=== PATIENT | male | born 1960 | race Two or more races ===

== ENCOUNTER 2017-09-09 09:33 | Emergency (ER) | payer OTHER ==
[~2017-09-09] VITALS: Ht 160 cm; Wt 72.8 kg
[2017-09-09] MEDS ORDERED: ONDANSETRON 2MG/ML, 2ML IVPush ONE (10:00)
[2017-09-09] MEDS ORDERED: SODIUM CHLORIDE 0.9% 1,000ML IVBOLUS ONE (10:00)
[2017-09-09] MEDS ORDERED: ONDANSETRON 2MG/ML, 2ML ONE ×2 (10:08→13:24)
[2017-09-09] MEDS ORDERED: MORPHINE SULFATE 4 MG/ML, 1ML ONE ×2 (10:08→11:20)
[2017-09-09] MEDS: MORPHINE SULFATE 4 MG/ML, 1ML IVPush PRN ×2 (10:10→11:26)
[2017-09-09 10:15] LABS: BASOPHILS # (AUTO) 0.06 x10^3/uL (0-0.1); BASOPHILS % (AUTO) 1 % (0-1); EOSINOPHILS # (AUTO) 0.06 x10^3/uL (0-0.4); EOSINOPHILS % (AUTO) 1 % (1-7); LYMPHOCYTES # (AUTO) 1.28 x10^3/uL (1-3.4); LYMPHOCYTES % (AUTO) 13 % (22-44); MD NO; MEAN CORPUSCULAR HEMOGLOBIN 30.8 pg (27.5-34.5); MEAN CORPUSCULAR VOLUME 90.4 fL (81-97); MEAN PLATELET VOLUME 7.5 fL (7.4-10.4); MONOCYTES # (AUTO) 0.58 x10^3/uL (0.2-0.8); MONOCYTES % (AUTO) 6 % (2-9); NEUTROPHILS # (AUTO) 7.61 x10^3/uL (1.8-6.8); NEUTROPHILS % (AUTO) 79 % (42-75); PLATELET COUNT 242 x10^3/uL (130-400); RED BLOOD COUNT 5.44 x10^6/uL (4.38-5.82); RED CELL DISTRIBUTION WIDTH 13.9 % (9.4-14.8)
[2017-09-09 10:21] LABS: MICROSCOPIC AUTO
[2017-09-09 10:24] LABS: CULTURE INDICATED? NO
[2017-09-09 10:27] LABS: ALANINE AMINOTRANSFERASE 34 U/L (12-78); ANION GAP 6 mmol/L (5-15); CALCIUM 8.3 mg/dL (8.5-10.1); CHLORIDE 106 mmol/L (98-107)
[2017-09-09 10:29] LABS: ALKALINE PHOSPHATASE 119 U/L (45-117); CREATININE 0.67 mg/dL (0.7-1.3); TOTAL PROTEIN 8.1 g/dL (6.4-8.2)
[2017-09-09] MEDS ORDERED: OMNIPAQUE 350 MG/ML, 100ML BOTTLE ONE (11:21)
[2017-09-09] MEDS ORDERED: HYDROmorphone 1 MG/ML, 1ML IVPush PRN (12:00)
[2017-09-09] MEDS ORDERED: HYDROmorphone 2 MG/ML, 1ML ONE (12:19)
[2017-09-09 13:33] VITALS: BP 154/89
== END 2017-09-09 13:38 | disposition home or self-care (01) ==
LOC: ED 10:26
DX: R10.30 Lower abdominal pain, unspecified (principal)
CPT/HCPCS: 36415; 74177; 80053; 81001; 85025; 96361; 96374; 96375; 96376; 99285; J1170; J2405; J7030; Q9967

== ENCOUNTER 2017-09-18 11:40 | Inpatient (IN) | payer OTHER ==
[~2017-09-18] VITALS: Ht 160 cm; Wt 69.0 kg
[2017-09-18] MEDS ORDERED: ACET-1600 PO (12:33)
[2017-09-18] MEDS ORDERED: NAPR-868 PO (12:33)
[2017-09-18 12:51] VITALS: BP 159/98
[2017-09-18] MEDS ORDERED: LACTATED RINGERS 1,000 ML IV SCH (12:51)
[2017-09-18] MEDS ORDERED: PLEASE ENTER HEIGHT AND WEIGHT MC SCH (13:30)
[2017-09-18] MEDS ORDERED: FENTANYL PF 100 MCG/2ML ONE (14:34)
[2017-09-18] MEDS ORDERED: MIDAZOLAM 1 MG/ML, 2ML ONE (14:59)
[2017-09-18] MEDS ORDERED: FENTANYL PF 100 MCG/2ML IV ONE (15:00)
[2017-09-18] MEDS ORDERED: FENTANYL PF 250 MCG/5ML ONE ×3 (15:07→16:29)
[2017-09-18] MEDS ORDERED: ONDANSETRON 2MG/ML, 2ML ONE (15:58)
[2017-09-18] MEDS ORDERED: DEXAMETHASONE 4 MG/ML, 5ML ONE (15:58)
[2017-09-18] MEDS ORDERED: hydrALAzine 20 MG/ML, 1ML ONE (15:58)
[2017-09-18] MEDS ORDERED: METOPROLOL 1 MG/ML, 5ML ONE (15:58)
[2017-09-18] MEDS ORDERED: ROCURONIUM 10 MG/ML,10ML ONE (15:58)
[2017-09-18] MEDS ORDERED: CEFOTETAN 2 GM ONE (15:58)
[2017-09-18] MEDS ORDERED: PROPOFOL 10 MG/ML, 20ML ONE (15:58)
[2017-09-18] MEDS ORDERED: ONDANSETRON 2MG/ML, 2ML IVPush PRN (16:00)
[2017-09-18] MEDS ORDERED: LABETALOL 5MG/ML, 20ML IV PRN (16:00)
[2017-09-18] MEDS ORDERED: ACETAMINOPHEN 325 MG TABLET PO PRN (16:00)
[2017-09-18] MEDS ORDERED: FENTANYL PF 100 MCG/2ML IV PRN (16:00)
[2017-09-18] MEDS ORDERED: MEPERIDINE/PF 50 MG/ML ONE (17:34)
[2017-09-18] MEDS: MEPERIDINE/PF 25MG/0.5ML IVPush PRN ×4 (17:40→19:10)
[2017-09-18] MEDS ORDERED: HYDROmorphone 2 MG/ML, 1ML ONE (18:18)
[2017-09-18] MEDS: HYDROmorphone 1 MG/ML, 1ML IV PRN ×3 (18:20→18:50)
[2017-09-18] MEDS ORDERED: DIPHENHYDRAMINE 25 MG CAPSULE PO PRN (20:30)
[2017-09-18] MEDS ORDERED: DIPHENHYDRAMINE 50 MG/ML, 1ML IVPush PRN (20:30)
[2017-09-18] MEDS ORDERED: LORazepam 1MG TABLET PO PRN (20:30)
[2017-09-18] MEDS ORDERED: CALCIUM CARBONATE 500 MG TAB.CHEW PO PRN (20:30)
[2017-09-18] MEDS ORDERED: ONDANSETRON 2MG/ML, 2ML IV PRN (20:30)
[2017-09-18] MEDS ORDERED: DEXAMETHASONE 4 MG/ML, 1ML IVPush PRN (20:30)
[2017-09-18] MEDS: ACETAMINOPHEN 325 MG TABLET PO SCH (21:55)
[2017-09-18] MEDS: KETOROLAC 30 MG/1 ML IVPush SCH (21:55)
[2017-09-18] MEDS ORDERED: LORazepam 2 MG/ML, 1ML IVPush PRN (22:00)
[2017-09-19 00:52] VITALS: BP 138/85
[2017-09-19 03:38] VITALS: BP_SYST 118; BP_SYST 125; BP_DIAS 72
[2017-09-19] MEDS: LACTATED RINGERS 1,000 ML IV SCH ×3 (03:51→22:49)
[2017-09-19] MEDS: KETOROLAC 30 MG/1 ML IVPush SCH ×3 (04:03→17:47)
[2017-09-19] MEDS: ACETAMINOPHEN 325 MG TABLET PO SCH ×3 (04:03→17:47)
[2017-09-19 05:37] LABS: BASOPHILS # (AUTO) 0.01 x10^3/uL (0-0.1); BASOPHILS % (AUTO) 0 % (0-1); EOSINOPHILS # (AUTO) 0.01 x10^3/uL (0-0.4); EOSINOPHILS % (AUTO) 0 % (1-7); LYMPHOCYTES % (AUTO) 7 % (22-44); MD NO; MEAN CORPUSCULAR HEMOGLOBIN 30.6 pg (27.5-34.5); MEAN CORPUSCULAR VOLUME 90.1 fL (81-97); MEAN PLATELET VOLUME 7.8 fL (7.4-10.4); MONOCYTES # (AUTO) 0.61 x10^3/uL (0.2-0.8); MONOCYTES % (AUTO) 6 % (2-9); NEUTROPHILS # (AUTO) 9.21 x10^3/uL (1.8-6.8); NEUTROPHILS % (AUTO) 87 % (42-75); PLATELET COUNT 261 x10^3/uL (130-400); RED BLOOD COUNT 4.69 x10^6/uL (4.38-5.82); RED CELL DISTRIBUTION WIDTH 13.6 % (9.4-14.8)
[2017-09-19 05:52] LABS: ALBUMIN 2.8 g/dL (3.4-5.0); ANION GAP 9 mmol/L (5-15); CALCIUM 7.7 mg/dL (8.5-10.1); CHLORIDE 101 mmol/L (98-107)
[2017-09-19 05:54] LABS: CREATININE 0.73 mg/dL (0.7-1.3)
[2017-09-19] MEDS: MORPHINE SULFATE 4 MG/ML, 1ML IVPush PRN ×2 (06:18→14:19)
[2017-09-19 07:07] VITALS: BP 93/53
[2017-09-19] MEDS: TAMSULOSIN 0.4 MG CAP.ER.24H PO SCH (10:54)
[2017-09-19] MEDS: ENOXAPARIN 40 MG/0.4 ML SQ SCH (10:55)
[2017-09-19] MEDS ORDERED: MAGNESIUM SULFATE PMX 2GM/50ML 50 ML IVPB ONE (11:30)
[2017-09-19 12:40] VITALS: BP 94/58
[2017-09-19 19:33] VITALS: BP 92/53
[2017-09-20] MEDS: KETOROLAC 30 MG/1 ML IVPush SCH ×5 (00:09→23:54)
[2017-09-20] MEDS: ACETAMINOPHEN 325 MG TABLET PO SCH ×5 (00:09→23:54)
[2017-09-20 02:24] VITALS: BP 90/50
[2017-09-20 05:01] LABS: MEAN CORPUSCULAR HEMOGLOBIN 30.7 pg (27.5-34.5); MEAN CORPUSCULAR HGB CONC 33.7 g/dL (33.2-36.2); MEAN CORPUSCULAR VOLUME 91.3 fL (81-97); MEAN PLATELET VOLUME 7.3 fL (7.4-10.4); PLATELET COUNT 214 x10^3/uL (130-400); RED BLOOD COUNT 4.05 x10^6/uL (4.38-5.82); RED CELL DISTRIBUTION WIDTH 13.6 % (9.4-14.8)
[2017-09-20 05:08] LABS: ANION GAP 7 mmol/L (5-15); CALCIUM 7.6 mg/dL (8.5-10.1); CHLORIDE 101 mmol/L (98-107)
[2017-09-20 05:09] LABS: CREATININE 0.85 mg/dL (0.7-1.3)
[2017-09-20 05:59] LABS: MD YES
[2017-09-20 06:00] LABS: BAND#(MANUAL) 0.53 x10^3/uL; BANDS%(MANUAL) 3 % (0-7); EOS#(MANUAL) 0.18 x10^3/uL (0.0-0.4); EOS% (MANUAL) 1 % (1-7); LYMPH#(MANUAL) 0.88 x10^3/uL (1-3.4); LYMPHS% (MANUAL) 5 % (22-44); MONOS#(MANUAL) 0.53 x10^3/uL (0.3-2.7); MONOS% (MANUAL) 3 % (2-9); SEG#(MANUAL) 15.49 x10^3/uL (1.8-6.8); SEGS% (MANUAL) 88 % (42-75)
[2017-09-20 06:02] LABS: <PLATELET ESTIMATE> ADEQUATE; <PLT MORPHOLOGY> NORMAL PLT MORPH; <RBC MORPHOLOGY> NORMAL
[2017-09-20] MEDS: LACTATED RINGERS 1,000 ML IV SCH ×2 (08:02→17:52)
[2017-09-20] MEDS: TAMSULOSIN 0.4 MG CAP.ER.24H PO SCH (08:03)
[2017-09-20 08:04] VITALS: BP 103/64
[2017-09-20] MEDS: ENOXAPARIN 40 MG/0.4 ML SQ SCH (11:44)
[2017-09-20 13:06] VITALS: BP 107/67
[2017-09-20 15:38] LABS: MICROSCOPIC AUTO
[2017-09-20 19:54] VITALS: BP 98/58
[2017-09-21] MEDS: LACTATED RINGERS 1,000 ML IV SCH (01:54)
[2017-09-21 03:09] VITALS: BP 110/70
[2017-09-21 05:10] LABS: BASOPHILS # (AUTO) 0.02 x10^3/uL (0-0.1); BASOPHILS % (AUTO) 0 % (0-1); EOSINOPHILS # (AUTO) 0.44 x10^3/uL (0-0.4); EOSINOPHILS % (AUTO) 3 % (1-7); LYMPHOCYTES # (AUTO) 1.26 x10^3/uL (1-3.4); LYMPHOCYTES % (AUTO) 8 % (22-44); MD NO; MEAN CORPUSCULAR HEMOGLOBIN 30.8 pg (27.5-34.5); MEAN CORPUSCULAR HGB CONC 34.2 g/dL (33.2-36.2); MEAN CORPUSCULAR VOLUME 90.2 fL (81-97); MEAN PLATELET VOLUME 7.4 fL (7.4-10.4); MONOCYTES # (AUTO) 0.71 x10^3/uL (0.2-0.8); MONOCYTES % (AUTO) 5 % (2-9); NEUTROPHILS # (AUTO) 13.13 x10^3/uL (1.8-6.8); NEUTROPHILS % (AUTO) 84 % (42-75); PLATELET COUNT 210 x10^3/uL (130-400); RED BLOOD COUNT 3.64 x10^6/uL (4.38-5.82); RED CELL DISTRIBUTION WIDTH 13.5 % (9.4-14.8)
[2017-09-21 05:18] LABS: CHLORIDE 104 mmol/L (98-107)
[2017-09-21 05:25] LABS: ANION GAP 7 mmol/L (5-15); CALCIUM 7.9 mg/dL (8.5-10.1); CREATININE 0.68 mg/dL (0.7-1.3)
[2017-09-21] MEDS: ACETAMINOPHEN 325 MG TABLET PO SCH ×4 (05:53→23:25)
[2017-09-21] MEDS: KETOROLAC 30 MG/1 ML IVPush SCH ×3 (05:53→17:53)
[2017-09-21 06:56] VITALS: BP 115/72
[2017-09-21] MEDS: TAMSULOSIN 0.4 MG CAP.ER.24H PO SCH (07:51)
[2017-09-21] MEDS: ENOXAPARIN 40 MG/0.4 ML SQ SCH (11:57)
[2017-09-21] MEDS: OXYcodone/APAP 5/325MG TABLET PO PRN ×3 (11:58→22:05)
[2017-09-21 14:00] VITALS: BP 112/73
[2017-09-21 19:46] VITALS: BP 115/71
[2017-09-21] MEDS: SODIUM CHLORIDE FLUSH 10ML SYR IVF SCH (22:05)
[2017-09-22 03:15] VITALS: BP 117/75
[2017-09-22 04:54] LABS: BASOPHILS # (AUTO) 0.02 x10^3/uL (0-0.1); BASOPHILS % (AUTO) 0 % (0-1); EOSINOPHILS % (AUTO) 5 % (1-7); LYMPHOCYTES # (AUTO) 1.25 x10^3/uL (1-3.4); LYMPHOCYTES % (AUTO) 11 % (22-44); MD NO; MEAN CORPUSCULAR HEMOGLOBIN 30.9 pg (27.5-34.5); MEAN CORPUSCULAR HGB CONC 33.8 g/dL (33.2-36.2); MEAN CORPUSCULAR VOLUME 91.3 fL (81-97); MEAN PLATELET VOLUME 7.1 fL (7.4-10.4); MONOCYTES # (AUTO) 0.81 x10^3/uL (0.2-0.8); MONOCYTES % (AUTO) 7 % (2-9); NEUTROPHILS # (AUTO) 8.51 x10^3/uL (1.8-6.8); NEUTROPHILS % (AUTO) 76 % (42-75); PLATELET COUNT 260 x10^3/uL (130-400); RED BLOOD COUNT 3.64 x10^6/uL (4.38-5.82); RED CELL DISTRIBUTION WIDTH 13.8 % (9.4-14.8)
[2017-09-22 05:06] LABS: CHLORIDE 103 mmol/L (98-107)
[2017-09-22 05:11] LABS: ANION GAP 6 mmol/L (5-15); CALCIUM 7.5 mg/dL (8.5-10.1); CREATININE 0.64 mg/dL (0.7-1.3)
[2017-09-22] MEDS: ACETAMINOPHEN 325 MG TABLET PO SCH ×3 (05:23→17:58)
[2017-09-22] MEDS: OXYcodone/APAP 5/325MG TABLET PO PRN ×3 (06:06→16:53)
[2017-09-22 07:16] VITALS: BP 117/67
[2017-09-22] MEDS: TAMSULOSIN 0.4 MG CAP.ER.24H PO SCH (08:33)
[2017-09-22] MEDS: SODIUM CHLORIDE FLUSH 10ML SYR IVF SCH ×2 (08:33→20:41)
[2017-09-22] MEDS ORDERED: POTASSIUM CHLORIDE 20 MEQ TAB.ER.PRT ONE (11:15)
[2017-09-22] MEDS: POTASSIUM CHLORIDE 20 MEQ TAB.ER.PRT PO SCH ×2 (11:19→20:41)
[2017-09-22] MEDS: ENOXAPARIN 40 MG/0.4 ML SQ SCH (11:19)
[2017-09-22 12:52] VITALS: BP 121/81
[2017-09-22 19:20] VITALS: BP 130/74
[2017-09-23 03:04] VITALS: BP 132/78
[2017-09-23] MEDS: OXYcodone/APAP 5/325MG TABLET PO PRN ×2 (04:45→15:52)
[2017-09-23 04:57] LABS: BASOPHILS # (AUTO) 0.02 x10^3/uL (0-0.1); BASOPHILS % (AUTO) 0 % (0-1); EOSINOPHILS # (AUTO) 0.46 x10^3/uL (0-0.4); EOSINOPHILS % (AUTO) 6 % (1-7); LYMPHOCYTES # (AUTO) 1.01 x10^3/uL (1-3.4); LYMPHOCYTES % (AUTO) 13 % (22-44); MD NO; MEAN CORPUSCULAR HEMOGLOBIN 30.6 pg (27.5-34.5); MEAN CORPUSCULAR VOLUME 90.1 fL (81-97); MEAN PLATELET VOLUME 7.1 fL (7.4-10.4); MONOCYTES # (AUTO) 0.59 x10^3/uL (0.2-0.8); MONOCYTES % (AUTO) 8 % (2-9); NEUTROPHILS # (AUTO) 5.55 x10^3/uL (1.8-6.8); NEUTROPHILS % (AUTO) 73 % (42-75); PLATELET COUNT 317 x10^3/uL (130-400); RED BLOOD COUNT 3.94 x10^6/uL (4.38-5.82); RED CELL DISTRIBUTION WIDTH 13.8 % (9.4-14.8)
[2017-09-23 05:00] LABS: ANION GAP 7 mmol/L (5-15); CHLORIDE 103 mmol/L (98-107); CREATININE 0.64 mg/dL (0.7-1.3)
[2017-09-23] MEDS: ACETAMINOPHEN 325 MG TABLET PO SCH ×4 (06:00→17:22)
[2017-09-23 08:01] VITALS: BP 113/71
[2017-09-23] MEDS: TAMSULOSIN 0.4 MG CAP.ER.24H PO SCH (08:54)
[2017-09-23] MEDS: SODIUM CHLORIDE FLUSH 10ML SYR IVF SCH (08:54)
[2017-09-23] MEDS: POTASSIUM CHLORIDE 20 MEQ TAB.ER.PRT PO SCH (08:54)
[2017-09-23] MEDS: ENOXAPARIN 40 MG/0.4 ML SQ SCH (11:27)
[2017-09-23 13:08] VITALS: BP 105/63
[2017-09-23] MEDS ORDERED: OXYC-302 PO (18:50)
[2017-09-23] MEDS ORDERED: POTA10TA11 PO (18:52)
== END 2017-09-23 19:18 | disposition home or self-care (01) | DRG 331 ==
LOC: ORIP 11:40 → EDSTATUS 15:00 → 4NOR 19:45
PROVIDERS: ADMIT Colon & Rectal Surgery; ATTEND Colon & Rectal Surgery
PROC: 0DBE0ZZ Excision of Large Intestine, Open Approach (ICD-10-PCS; principal; 2017-09-18 15:00)
DX: K56.699 Other intestinal obstruction unspecified as to partial versus complete obstruction (principal)
CPT/HCPCS: 36415; 80048; 81001; 82040; 83735; 85025; 86850; 86900; 88305; 88307; J1100; J1170; J1650; J1885; J2175; J2250; J2270; J2405; J2704; J3010; C1765; J0360; J3475; J7120; S0074

== ENCOUNTER 2017-09-26 20:39 | Inpatient (IN) | payer OTHER ==
[~2017-09-26] VITALS: Ht 160 cm; Wt 61.1 kg
[~2017-09-26 20:39] MED LIST: ACET-1600 PO; NAPR-868 PO; OXYC-302 PO; POTA10TA11 PO
[2017-09-26] MEDS ORDERED: OMNIPAQUE 350 MG/ML, 100ML BOTTLE ONE (21:00)
[2017-09-26] MEDS ORDERED: SODIUM CHLORIDE 0.9% 1,000ML IVBOLUS ONE (21:00)
[2017-09-26] MEDS ORDERED: SODIUM CHLORIDE FLUSH 10ML SYR IVF ONE (21:00)
[2017-09-26 21:24] LABS: BASOPHILS # (AUTO) 0.04 x10^3/uL (0-0.1); BASOPHILS % (AUTO) 0 % (0-1); EOSINOPHILS # (AUTO) 0.34 x10^3/uL (0-0.4); EOSINOPHILS % (AUTO) 3 % (1-7); LYMPHOCYTES # (AUTO) 1.14 x10^3/uL (1-3.4); LYMPHOCYTES % (AUTO) 8 % (22-44); MD NO; MEAN CORPUSCULAR HEMOGLOBIN 30.5 pg (27.5-34.5); MEAN CORPUSCULAR HGB CONC 33.8 g/dL (33.2-36.2); MEAN CORPUSCULAR VOLUME 90.1 fL (81-97); MEAN PLATELET VOLUME 6.3 fL (7.4-10.4); MONOCYTES # (AUTO) 0.59 x10^3/uL (0.2-0.8); MONOCYTES % (AUTO) 4 % (2-9); NEUTROPHILS # (AUTO) 11.57 x10^3/uL (1.8-6.8); NEUTROPHILS % (AUTO) 85 % (42-75); PLATELET COUNT 563 x10^3/uL (130-400); RED BLOOD COUNT 4.35 x10^6/uL (4.38-5.82); RED CELL DISTRIBUTION WIDTH 13.3 % (9.4-14.8)
[2017-09-26 21:32] LABS: ALANINE AMINOTRANSFERASE 27 U/L (12-78); ALBUMIN 2.6 g/dL (3.4-5.0); ANION GAP 8 mmol/L (5-15); CALCIUM 8.2 mg/dL (8.5-10.1); CHLORIDE 101 mmol/L (98-107); CREATININE 0.69 mg/dL (0.7-1.3)
[2017-09-26 21:34] LABS: ALKALINE PHOSPHATASE 101 U/L (45-117); BILIRUBIN,TOTAL 0.5 mg/dL (0.2-1.0); TOTAL PROTEIN 7.1 g/dL (6.4-8.2)
[2017-09-26] MEDS ORDERED: MEROPENEM 1 GM in SODIUM CHLORIDE 0.9% 100 ML IV ONE (23:00)
[2017-09-26 23:49] LABS: MICROSCOPIC NOT IND
[2017-09-26 23:54] LABS: CULTURE INDICATED? NO
[2017-09-27] MEDS ORDERED: PIPERACILLIN/TAZO/PMX 3.375GM 50 ML IV SCH
[2017-09-27] MEDS ORDERED: hydrALAzine 20 MG/ML, 1ML IVPush PRN
[2017-09-27] MEDS ORDERED: ONDANSETRON ODT 4 MG PO PRN
[2017-09-27] MEDS ORDERED: LACTATED RINGERS 1,000 ML IV SCH
[2017-09-27] MEDS ORDERED: METRONIDAZOLE PMX 500MG/100ML 100 ML ONE (00:16)
[2017-09-27] MEDS ORDERED: PIPERACILLIN/TAZO/PMX 3.375GM 50 ML ONE (00:16)
[2017-09-27] MEDS ORDERED: MORPHINE SULFATE 4 MG/ML, 1ML ONE (00:50)
[2017-09-27] MEDS: METRONIDAZOLE PMX 500MG/100ML 100 ML IV SCH ×3 (00:55→16:34)
[2017-09-27] MEDS: ENOXAPARIN 30 MG/0.3 ML SQ SCH ×2 (00:55→13:29)
[2017-09-27] MEDS: morphine SULFATE 10 MG/ML, 1ML IVPush PRN ×6 (00:55→21:36)
[2017-09-27 02:00] VITALS: BP 101/65
[2017-09-27 02:03] VITALS: BP 101/65
[2017-09-27 05:25] LABS: CHLORIDE 103 mmol/L (98-107)
[2017-09-27 05:30] LABS: ANION GAP 7 mmol/L (5-15); CALCIUM 7.8 mg/dL (8.5-10.1); CREATININE 0.64 mg/dL (0.7-1.3)
[2017-09-27 05:44] LABS: BASOPHILS # (AUTO) 0.03 x10^3/uL (0-0.1); BASOPHILS % (AUTO) 0 % (0-1); EOSINOPHILS # (AUTO) 0.12 x10^3/uL (0-0.4); EOSINOPHILS % (AUTO) 1 % (1-7); LYMPHOCYTES % (AUTO) 6 % (22-44); MD NO; MEAN CORPUSCULAR HEMOGLOBIN 30.7 pg (27.5-34.5); MEAN CORPUSCULAR VOLUME 90.3 fL (81-97); MEAN PLATELET VOLUME 6.7 fL (7.4-10.4); MONOCYTES # (AUTO) 0.67 x10^3/uL (0.2-0.8); MONOCYTES % (AUTO) 5 % (2-9); NEUTROPHILS # (AUTO) 12.34 x10^3/uL (1.8-6.8); NEUTROPHILS % (AUTO) 88 % (42-75); PLATELET COUNT 476 x10^3/uL (130-400); RED BLOOD COUNT 3.67 x10^6/uL (4.38-5.82); RED CELL DISTRIBUTION WIDTH 13.3 % (9.4-14.8)
[2017-09-27 07:21] VITALS: BP 102/65
[2017-09-27] MEDS ORDERED: ACETAMINOPHEN 325 MG TABLET ONE (07:31)
[2017-09-27] MEDS ORDERED: ACETAMINOPHEN 325 MG TABLET PO PRN ×2 (08:00→09:30)
[2017-09-27] MEDS ORDERED: MIDAZOLAM 1 MG/ML, 2ML ONE (08:15)
[2017-09-27] MEDS ORDERED: FENTANYL PF 250 MCG/5ML ONE (08:15)
[2017-09-27] MEDS ORDERED: KETOROLAC 30 MG/1 ML ONE (08:38)
[2017-09-27] MEDS ORDERED: ROCURONIUM 10 MG/ML,10ML ONE (08:38)
[2017-09-27] MEDS ORDERED: DEXAMETHASONE 4 MG/ML, 1ML ONE (08:38)
[2017-09-27] MEDS ORDERED: ONDANSETRON 2MG/ML, 2ML ONE (08:38)
[2017-09-27] MEDS ORDERED: PIPERACILLIN/TAZO 3.375 GM VIAL ONE (08:38)
[2017-09-27] MEDS ORDERED: PROPOFOL 10 MG/ML, 20ML ONE (08:38)
[2017-09-27] MEDS ORDERED: NEOSTIGMINE 1 MG/ML, 10ML ONE (08:38)
[2017-09-27] MEDS ORDERED: SUCCINYLCHOLINE 20 MG/ML, 10ML ONE (08:38)
[2017-09-27] MEDS ORDERED: GLYCOPYRROLATE 0.2MG/1ML, 5ML ONE (08:38)
[2017-09-27] MEDS ORDERED: LORazepam 2 MG/ML, 1ML IVPush PRN (09:30)
[2017-09-27] MEDS ORDERED: hydrALAzine 20 MG/ML, 1ML IV PRN (09:30)
[2017-09-27] MEDS ORDERED: HYDROmorphone 1 MG/ML, 1ML IV PRN (09:30)
[2017-09-27] MEDS ORDERED: LABETALOL 5MG/ML, 20ML IV PRN (09:30)
[2017-09-27] MEDS ORDERED: ALBUTEROL SULFATE 2.5 MG/3 ML NPPB PRN (09:30)
[2017-09-27] MEDS ORDERED: MEPERIDINE/PF 25MG/0.5ML IVPush PRN (09:30)
[2017-09-27] MEDS ORDERED: PROMETHAZINE 12.5 MG SUPP PR PRN (09:30)
[2017-09-27] MEDS ORDERED: OXYcodone 5 MG/5 ML ORAL.SOL UDC PO PRN (09:30)
[2017-09-27] MEDS ORDERED: HYDROmorphone 2 MG/ML, 1ML ONE (10:20)
[2017-09-27] MEDS ORDERED: FENTANYL PF 100 MCG/2ML ONE (11:25)
[2017-09-27] MEDS: FENTANYL PF 100 MCG/2ML IV PRN ×2 (11:53→12:02)
[2017-09-27 12:53] VITALS: BP 120/78
[2017-09-27] MEDS ORDERED: ONDANSETRON 2MG/ML, 2ML IVPush PRN (13:00)
[2017-09-27] MEDS ORDERED: morphine SULFATE 10 MG/ML, 1ML ONE (14:49)
[2017-09-27] MEDS: LACTATED RINGERS 1,000 ML IV SCH (14:57)
[2017-09-27] MEDS: PIPERACILLIN/TAZO/PMX 3.375GM 50 ML IV SCH ×2 (15:01→21:28)
[2017-09-27 18:35] VITALS: BP 107/71
[2017-09-27 23:50] VITALS: BP 103/70
[2017-09-28] MEDS: METRONIDAZOLE PMX 500MG/100ML 100 ML IV SCH ×2 (00:37→08:06)
[2017-09-28] MEDS: ENOXAPARIN 30 MG/0.3 ML SQ SCH (00:37)
[2017-09-28] MEDS: LACTATED RINGERS 1,000 ML IV SCH ×2 (00:43→08:06)
[2017-09-28] MEDS: morphine SULFATE 10 MG/ML, 1ML IVPush PRN ×2 (01:52→08:22)
[2017-09-28] MEDS: PIPERACILLIN/TAZO/PMX 3.375GM 50 ML IV SCH ×4 (03:37→20:59)
[2017-09-28 04:00] VITALS: BP 102/71
[2017-09-28 06:45] VITALS: BP 112/74
[2017-09-28] MEDS ORDERED: TPN PER PHARMACY MC PRN (08:00)
[2017-09-28] MEDS: TAMSULOSIN 0.4 MG CAP.ER.24H PO SCH (09:21)
[2017-09-28 11:17] LABS: ALBUMIN 1.7 g/dL (3.4-5.0); ANION GAP 6 mmol/L (5-15); CALCIUM 7.9 mg/dL (8.5-10.1); CHLORIDE 106 mmol/L (98-107)
[2017-09-28 11:23] LABS: ALANINE AMINOTRANSFERASE 15 U/L (12-78); ALKALINE PHOSPHATASE 62 U/L (45-117); BILIRUBIN,TOTAL 0.6 mg/dL (0.2-1.0); CREATININE 0.79 mg/dL (0.7-1.3); PREALBUMIN 6.9 mg/dL (20.0-40.0); TOTAL PROTEIN 5.5 g/dL (6.4-8.2); TRIGLYCERIDES 61 mg/dL (50-200)
[2017-09-28 12:29] LABS: MEAN CORPUSCULAR HEMOGLOBIN 30.1 pg (27.5-34.5); MEAN CORPUSCULAR HGB CONC 33.6 g/dL (33.2-36.2); MEAN CORPUSCULAR VOLUME 89.6 fL (81-97); MEAN PLATELET VOLUME 6.6 fL (7.4-10.4); PLATELET COUNT 564 x10^3/uL (130-400); RED BLOOD COUNT 3.95 x10^6/uL (4.38-5.82); RED CELL DISTRIBUTION WIDTH 13.7 % (9.4-14.8)
[2017-09-28 12:43] LABS: BASOPHILS # (AUTO) 0.03 x10^3/uL (0-0.1); BASOPHILS % (AUTO) 0 % (0-1); EOSINOPHILS % (AUTO) 0 % (1-7); LYMPHOCYTES # (AUTO) 0.63 x10^3/uL (1-3.4); LYMPHOCYTES % (AUTO) 3 % (22-44); MD SCAN; MONOCYTES # (AUTO) 0.72 x10^3/uL (0.2-0.8); MONOCYTES % (AUTO) 4 % (2-9); NEUTROPHILS # (AUTO) 16.82 x10^3/uL (1.8-6.8); NEUTROPHILS % (AUTO) 92 % (42-75)
[2017-09-28 12:53] VITALS: BP 112/69
[2017-09-28] MEDS ORDERED: FAT EMULSIONS IV SCH (17:00)
[2017-09-28] MEDS ORDERED: AMINO ACID 10% IV SCH (17:00)
[2017-09-28] MEDS ORDERED: DEXTROSE 70% IV SCH (17:00)
[2017-09-28] MEDS ORDERED: DEXTROSE 50%, 50ML SYRINGE IVPush PRN (17:00)
[2017-09-28] MEDS ORDERED: DEXTROSE 10% 500 ML IV PRN (17:00)
[2017-09-28] MEDS ORDERED: [UNRECOGNIZED DRUG - OTHER] IV SCH (17:00)
[2017-09-28] MEDS: FILTER, DISP 1.2 MICRON FOR TPN/PVN IV PRN (18:17)
[2017-09-28 18:46] VITALS: BP 99/65
[2017-09-28] MEDS: SODIUM CHLORIDE 0.45% 1,000 ML IV SCH (19:16)
[2017-09-28] MEDS: ENOXAPARIN 40 MG/0.4 ML SQ SCH (20:59)
[2017-09-28] MEDS: INSULIN REGULAR MEDIUM DOSE Q6H X 48HRS SQ-INSULIN SCH (21:31)
[2017-09-29 00:37] VITALS: BP 94/54
[2017-09-29] MEDS: INSULIN REGULAR MEDIUM DOSE Q6H X 48HRS SQ-INSULIN SCH ×4 (03:00→20:36)
[2017-09-29] MEDS: PIPERACILLIN/TAZO/PMX 3.375GM 50 ML IV SCH ×4 (03:13→20:35)
[2017-09-29 04:02] LABS: MEAN CORPUSCULAR HEMOGLOBIN 30.1 pg (27.5-34.5); MEAN CORPUSCULAR HGB CONC 33.4 g/dL (33.2-36.2); MEAN PLATELET VOLUME 7.2 fL (7.4-10.4); PLATELET COUNT 494 x10^3/uL (130-400); RED BLOOD COUNT 3.21 x10^6/uL (4.38-5.82); RED CELL DISTRIBUTION WIDTH 13.9 % (9.4-14.8)
[2017-09-29 04:13] LABS: ANION GAP 3 mmol/L (5-15); CALCIUM 7.8 mg/dL (8.5-10.1); CHLORIDE 105 mmol/L (98-107); CREATININE 0.48 mg/dL (0.7-1.3)
[2017-09-29 04:31] LABS: BASOPHILS % (AUTO) 0 % (0-1); EOSINOPHILS # (AUTO) 0.01 x10^3/uL (0-0.4); EOSINOPHILS % (AUTO) 0 % (1-7); LYMPHOCYTES # (AUTO) 6.04 x10^3/uL (1-3.4); LYMPHOCYTES % (AUTO) 41 % (22-44); MD SCAN; MONOCYTES # (AUTO) 0.66 x10^3/uL (0.2-0.8); MONOCYTES % (AUTO) 5 % (2-9); NEUTROPHILS # (AUTO) 7.92 x10^3/uL (1.8-6.8); NEUTROPHILS % (AUTO) 54 % (42-75)
[2017-09-29 06:38] VITALS: BP 100/62
[2017-09-29] MEDS: TAMSULOSIN 0.4 MG CAP.ER.24H PO SCH (09:24)
[2017-09-29] MEDS: morphine SULFATE 10 MG/ML, 1ML IVPush PRN (10:58)
[2017-09-29 13:46] VITALS: BP 104/65
[2017-09-29] MEDS: FILTER, DISP 1.2 MICRON FOR TPN/PVN IV PRN (15:31)
[2017-09-29] MEDS ORDERED: [UNRECOGNIZED DRUG - OTHER] IV SCH (17:00)
[2017-09-29] MEDS ORDERED: FAT EMULSIONS IV SCH (17:00)
[2017-09-29] MEDS ORDERED: AMINO ACID 10% IV SCH (17:00)
[2017-09-29] MEDS ORDERED: DEXTROSE 70% IV SCH (17:00)
[2017-09-29 20:12] VITALS: BP 107/66
[2017-09-29] MEDS: ENOXAPARIN 40 MG/0.4 ML SQ SCH (20:35)
[2017-09-30 02:33] VITALS: BP 115/72
[2017-09-30] MEDS: INSULIN REGULAR MEDIUM DOSE Q6H X 48HRS SQ-INSULIN SCH ×3 (03:00→15:09)
[2017-09-30] MEDS: PIPERACILLIN/TAZO/PMX 3.375GM 50 ML IV SCH ×4 (03:13→22:00)
[2017-09-30 03:27] LABS: BASOPHILS # (AUTO) 0.02 x10^3/uL (0-0.1); BASOPHILS % (AUTO) 0 % (0-1); EOSINOPHILS # (AUTO) 0.26 x10^3/uL (0-0.4); EOSINOPHILS % (AUTO) 3 % (1-7); LYMPHOCYTES # (AUTO) 0.85 x10^3/uL (1-3.4); LYMPHOCYTES % (AUTO) 9 % (22-44); MD NO; MEAN CORPUSCULAR HGB CONC 33.2 g/dL (33.2-36.2); MEAN CORPUSCULAR VOLUME 90.3 fL (81-97); MEAN PLATELET VOLUME 6.8 fL (7.4-10.4); MONOCYTES # (AUTO) 0.66 x10^3/uL (0.2-0.8); MONOCYTES % (AUTO) 7 % (2-9); NEUTROPHILS # (AUTO) 8.02 x10^3/uL (1.8-6.8); NEUTROPHILS % (AUTO) 82 % (42-75); PLATELET COUNT 522 x10^3/uL (130-400); RED BLOOD COUNT 3.19 x10^6/uL (4.38-5.82); RED CELL DISTRIBUTION WIDTH 13.7 % (9.4-14.8)
[2017-09-30 04:01] LABS: ANION GAP 7 mmol/L (5-15); CALCIUM 7.3 mg/dL (8.5-10.1); CHLORIDE 107 mmol/L (98-107); CREATININE 0.36 mg/dL (0.7-1.3)
[2017-09-30 07:03] VITALS: BP 124/74
[2017-09-30] MEDS: TAMSULOSIN 0.4 MG CAP.ER.24H PO SCH (09:24)
[2017-09-30 14:38] VITALS: BP 117/67
[2017-09-30] MEDS: FILTER, DISP 1.2 MICRON FOR TPN/PVN IV PRN (16:31)
[2017-09-30] MEDS ORDERED: DEXTROSE 70% IV SCH ×2 (17:00)
[2017-09-30] MEDS ORDERED: [UNRECOGNIZED DRUG - OTHER] IV SCH (17:00)
[2017-09-30] MEDS ORDERED: AMINO ACID 10% IV SCH ×2 (17:00)
[2017-09-30] MEDS ORDERED: [UNRECOGNIZED DRUG - OTHER] IV SCH (17:00)
[2017-09-30] MEDS ORDERED: FAT EMULSIONS IV SCH ×2 (17:00)
[2017-09-30 19:38] VITALS: BP 111/68
[2017-09-30] MEDS: ENOXAPARIN 40 MG/0.4 ML SQ SCH (22:00)
[2017-10-01 01:12] VITALS: BP 116/74
[2017-10-01] MEDS: PIPERACILLIN/TAZO/PMX 3.375GM 50 ML IV SCH ×4 (04:18→20:50)
[2017-10-01 06:20] LABS: BASOPHILS # (AUTO) 0.04 x10^3/uL (0-0.1); BASOPHILS % (AUTO) 0 % (0-1); EOSINOPHILS # (AUTO) 0.31 x10^3/uL (0-0.4); EOSINOPHILS % (AUTO) 3 % (1-7); LYMPHOCYTES % (AUTO) 10 % (22-44); MD NO; MEAN CORPUSCULAR HEMOGLOBIN 30.4 pg (27.5-34.5); MEAN CORPUSCULAR HGB CONC 33.9 g/dL (33.2-36.2); MEAN CORPUSCULAR VOLUME 89.6 fL (81-97); MEAN PLATELET VOLUME 6.6 fL (7.4-10.4); MONOCYTES # (AUTO) 0.93 x10^3/uL (0.2-0.8); MONOCYTES % (AUTO) 10 % (2-9); NEUTROPHILS # (AUTO) 6.99 x10^3/uL (1.8-6.8); NEUTROPHILS % (AUTO) 76 % (42-75); PLATELET COUNT 645 x10^3/uL (130-400); RED BLOOD COUNT 3.61 x10^6/uL (4.38-5.82)
[2017-10-01 06:30] LABS: ANION GAP 8 mmol/L (5-15); CALCIUM 7.5 mg/dL (8.5-10.1); CHLORIDE 101 mmol/L (98-107); CREATININE 0.37 mg/dL (0.7-1.3)
[2017-10-01 06:46] VITALS: BP 109/72
[2017-10-01] MEDS ORDERED: INSULIN REGULAR MEDIUM DOSE QDAY SQ-INSULIN SCH (08:00)
[2017-10-01] MEDS: TAMSULOSIN 0.4 MG CAP.ER.24H PO SCH (08:31)
[2017-10-01] MEDS: morphine SULFATE 10 MG/ML, 1ML IVPush PRN (13:07)
[2017-10-01 14:15] VITALS: BP 107/72
[2017-10-01] MEDS ORDERED: [UNRECOGNIZED DRUG - OTHER] IV SCH (17:00)
[2017-10-01] MEDS ORDERED: AMINO ACID 10% IV SCH (17:00)
[2017-10-01] MEDS ORDERED: DEXTROSE 70% IV SCH (17:00)
[2017-10-01] MEDS ORDERED: FAT EMULSIONS IV SCH (17:00)
[2017-10-01] MEDS: FILTER, DISP 1.2 MICRON FOR TPN/PVN IV PRN (18:06)
[2017-10-01] MEDS: SODIUM CHLORIDE 0.45% 1,000 ML IV SCH (18:17)
[2017-10-01 20:08] VITALS: BP 109/72
[2017-10-01] MEDS: ENOXAPARIN 40 MG/0.4 ML SQ SCH (20:50)
[2017-10-02] MEDS: PIPERACILLIN/TAZO/PMX 3.375GM 50 ML IV SCH ×2 (03:05→09:05)
[2017-10-02 03:35] VITALS: BP 112/71
[2017-10-02 04:40] LABS: BASOPHILS # (AUTO) 0.04 x10^3/uL (0-0.1); BASOPHILS % (AUTO) 0 % (0-1); EOSINOPHILS % (AUTO) 4 % (1-7); LYMPHOCYTES % (AUTO) 10 % (22-44); MD NO; MEAN CORPUSCULAR HEMOGLOBIN 29.9 pg (27.5-34.5); MEAN CORPUSCULAR HGB CONC 33.4 g/dL (33.2-36.2); MEAN CORPUSCULAR VOLUME 89.6 fL (81-97); MEAN PLATELET VOLUME 6.7 fL (7.4-10.4); MONOCYTES # (AUTO) 1.01 x10^3/uL (0.2-0.8); MONOCYTES % (AUTO) 10 % (2-9); NEUTROPHILS # (AUTO) 7.66 x10^3/uL (1.8-6.8); NEUTROPHILS % (AUTO) 76 % (42-75); PLATELET COUNT 648 x10^3/uL (130-400); RED BLOOD COUNT 3.61 x10^6/uL (4.38-5.82); RED CELL DISTRIBUTION WIDTH 13.6 % (9.4-14.8)
[2017-10-02 04:51] LABS: ANION GAP 6 mmol/L (5-15); CALCIUM 7.7 mg/dL (8.5-10.1); CHLORIDE 102 mmol/L (98-107); CREATININE 0.39 mg/dL (0.7-1.3)
[2017-10-02 07:55] VITALS: BP 103/68
[2017-10-02] MEDS: INSULIN REGULAR MEDIUM DOSE QDAY SQ-INSULIN SCH (08:00)
[2017-10-02] MEDS: TAMSULOSIN 0.4 MG CAP.ER.24H PO SCH (08:14)
[2017-10-02] MEDS: PIPERACILLIN/TAZO/PMX 4.5GM 100 ML IV SCH ×2 (13:40→21:08)
[2017-10-02] MEDS: MICAFUNGIN 100 MG in SODIUM CHLORIDE 0.9% 100 ML IV SCH (14:58)
[2017-10-02 15:21] VITALS: BP 102/66
[2017-10-02] MEDS ORDERED: FILTER, DISP 1.2 MICRON FOR TPN/PVN IV PRN (17:00)
[2017-10-02] MEDS ORDERED: DEXTROSE 70% IV SCH (17:00)
[2017-10-02] MEDS ORDERED: AMINO ACID 10% IV SCH (17:00)
[2017-10-02] MEDS ORDERED: [UNRECOGNIZED DRUG - OTHER] IV SCH (17:00)
[2017-10-02] MEDS ORDERED: FAT EMULSIONS IV SCH (17:00)
[2017-10-02 18:48] VITALS: BP 114/72
[2017-10-02] MEDS: ENOXAPARIN 40 MG/0.4 ML SQ SCH (21:08)
[2017-10-03 00:13] VITALS: BP 113/70
[2017-10-03] MEDS: PIPERACILLIN/TAZO/PMX 4.5GM 100 ML IV SCH ×3 (04:57→21:18)
[2017-10-03 05:18] LABS: BASOPHILS # (AUTO) 0.04 x10^3/uL (0-0.1); BASOPHILS % (AUTO) 0 % (0-1); EOSINOPHILS # (AUTO) 0.58 x10^3/uL (0-0.4); EOSINOPHILS % (AUTO) 5 % (1-7); LYMPHOCYTES # (AUTO) 0.87 x10^3/uL (1-3.4); LYMPHOCYTES % (AUTO) 8 % (22-44); MD NO; MEAN CORPUSCULAR HEMOGLOBIN 30.1 pg (27.5-34.5); MEAN CORPUSCULAR HGB CONC 33.8 g/dL (33.2-36.2); MEAN CORPUSCULAR VOLUME 89.1 fL (81-97); MONOCYTES # (AUTO) 0.83 x10^3/uL (0.2-0.8); MONOCYTES % (AUTO) 8 % (2-9); NEUTROPHILS # (AUTO) 8.56 x10^3/uL (1.8-6.8); NEUTROPHILS % (AUTO) 79 % (42-75); PLATELET COUNT 614 x10^3/uL (130-400); RED BLOOD COUNT 3.59 x10^6/uL (4.38-5.82); RED CELL DISTRIBUTION WIDTH 13.5 % (9.4-14.8)
[2017-10-03 05:22] LABS: CALCIUM 7.8 mg/dL (8.5-10.1); CHLORIDE 103 mmol/L (98-107)
[2017-10-03 05:26] LABS: ANION GAP 7 mmol/L (5-15); CREATININE 0.43 mg/dL (0.7-1.3)
[2017-10-03] MEDS: INSULIN REGULAR MEDIUM DOSE QDAY SQ-INSULIN SCH (07:28)
[2017-10-03] MEDS: TAMSULOSIN 0.4 MG CAP.ER.24H PO SCH (08:08)
[2017-10-03 08:47] VITALS: BP 112/70
[2017-10-03] MEDS: morphine SULFATE 10 MG/ML, 1ML IVPush PRN (11:16)
[2017-10-03 13:11] VITALS: BP 119/80
[2017-10-03] MEDS: MICAFUNGIN 100 MG in SODIUM CHLORIDE 0.9% 100 ML IV SCH (14:59)
[2017-10-03] MEDS ORDERED: DEXTROSE 70% IV SCH (17:00)
[2017-10-03] MEDS ORDERED: FAT EMULSIONS IV SCH (17:00)
[2017-10-03] MEDS ORDERED: AMINO ACID 10% IV SCH (17:00)
[2017-10-03] MEDS ORDERED: FILTER, DISP 1.2 MICRON FOR TPN/PVN IV PRN (17:00)
[2017-10-03] MEDS ORDERED: [UNRECOGNIZED DRUG - OTHER] IV SCH (17:00)
[2017-10-03] MEDS: SODIUM CHLORIDE 0.45% 1,000 ML IV SCH (17:01)
[2017-10-03 18:42] VITALS: BP 116/73
[2017-10-03] MEDS: ENOXAPARIN 40 MG/0.4 ML SQ SCH (20:30)
[2017-10-04 00:38] VITALS: BP 102/67
[2017-10-04] MEDS: PIPERACILLIN/TAZO/PMX 4.5GM 100 ML IV SCH ×3 (05:12→22:35)
[2017-10-04 05:35] LABS: BASOPHILS # (AUTO) 0.04 x10^3/uL (0-0.1); BASOPHILS % (AUTO) 1 % (0-1); EOSINOPHILS # (AUTO) 0.51 x10^3/uL (0-0.4); EOSINOPHILS % (AUTO) 6 % (1-7); LYMPHOCYTES # (AUTO) 0.93 x10^3/uL (1-3.4); LYMPHOCYTES % (AUTO) 10 % (22-44); MD NO; MEAN CORPUSCULAR HEMOGLOBIN 30.1 pg (27.5-34.5); MEAN CORPUSCULAR VOLUME 88.5 fL (81-97); MEAN PLATELET VOLUME 6.9 fL (7.4-10.4); MONOCYTES # (AUTO) 0.69 x10^3/uL (0.2-0.8); MONOCYTES % (AUTO) 8 % (2-9); NEUTROPHILS # (AUTO) 6.77 x10^3/uL (1.8-6.8); NEUTROPHILS % (AUTO) 76 % (42-75); PLATELET COUNT 641 x10^3/uL (130-400); RED CELL DISTRIBUTION WIDTH 13.6 % (9.4-14.8)
[2017-10-04 05:40] LABS: ANION GAP 5 mmol/L (5-15); CHLORIDE 104 mmol/L (98-107); CREATININE 0.49 mg/dL (0.7-1.3)
[2017-10-04 06:42] VITALS: BP 111/71
[2017-10-04] MEDS: INSULIN REGULAR MEDIUM DOSE QDAY SQ-INSULIN SCH (08:00)
[2017-10-04] MEDS: TAMSULOSIN 0.4 MG CAP.ER.24H PO SCH (08:23)
[2017-10-04 12:56] VITALS: BP 132/82
[2017-10-04] MEDS: MICAFUNGIN 100 MG in SODIUM CHLORIDE 0.9% 100 ML IV SCH (15:44)
[2017-10-04] MEDS ORDERED: FILTER, DISP 1.2 MICRON FOR TPN/PVN IV PRN (17:00)
[2017-10-04] MEDS ORDERED: [UNRECOGNIZED DRUG - OTHER] IV SCH (17:00)
[2017-10-04] MEDS ORDERED: DEXTROSE 70% IV SCH (17:00)
[2017-10-04] MEDS ORDERED: FAT EMULSIONS IV SCH (17:00)
[2017-10-04] MEDS ORDERED: AMINO ACID 10% IV SCH (17:00)
[2017-10-04] MEDS ORDERED: OMNIPAQUE 350 MG/ML, 100ML BOTTLE ONE (18:36)
[2017-10-04 20:15] VITALS: BP 110/69
[2017-10-04] MEDS: ENOXAPARIN 40 MG/0.4 ML SQ SCH (22:35)
[2017-10-05 02:08] VITALS: BP 101/63
[2017-10-05] MEDS: PIPERACILLIN/TAZO/PMX 4.5GM 100 ML IV SCH ×3 (06:35→21:01)
[2017-10-05 07:13] LABS: BASOPHILS # (AUTO) 0.08 x10^3/uL (0-0.1); BASOPHILS % (AUTO) 1 % (0-1); EOSINOPHILS # (AUTO) 0.39 x10^3/uL (0-0.4); EOSINOPHILS % (AUTO) 4 % (1-7); LYMPHOCYTES # (AUTO) 0.89 x10^3/uL (1-3.4); LYMPHOCYTES % (AUTO) 9 % (22-44); MD NO; MEAN CORPUSCULAR HEMOGLOBIN 29.6 pg (27.5-34.5); MEAN CORPUSCULAR HGB CONC 33.3 g/dL (33.2-36.2); MEAN CORPUSCULAR VOLUME 88.9 fL (81-97); MEAN PLATELET VOLUME 6.7 fL (7.4-10.4); MONOCYTES % (AUTO) 7 % (2-9); NEUTROPHILS # (AUTO) 7.54 x10^3/uL (1.8-6.8); NEUTROPHILS % (AUTO) 79 % (42-75); PLATELET COUNT 680 x10^3/uL (130-400); RED BLOOD COUNT 3.77 x10^6/uL (4.38-5.82); RED CELL DISTRIBUTION WIDTH 13.4 % (9.4-14.8)
[2017-10-05 07:19] VITALS: BP 118/77
[2017-10-05 07:19] LABS: ANION GAP 8 mmol/L (5-15); CALCIUM 8.1 mg/dL (8.5-10.1); CHLORIDE 102 mmol/L (98-107); CREATININE 0.52 mg/dL (0.7-1.3)
[2017-10-05] MEDS: INSULIN REGULAR MEDIUM DOSE QDAY SQ-INSULIN SCH (07:46)
[2017-10-05] MEDS ORDERED: OXYcodone/APAP 5/325MG TABLET PO PRN ×2 (09:30→10:00)
[2017-10-05] MEDS: TAMSULOSIN 0.4 MG CAP.ER.24H PO SCH (09:55)
[2017-10-05] MEDS ORDERED: FENTANYL PF 100 MCG/2ML ONE (10:48)
[2017-10-05] MEDS ORDERED: LIDOCAINE 1%, 20ML ONE (10:49)
[2017-10-05] MEDS ORDERED: OXYcodone/APAP 5/325MG TABLET ONE (12:27)
[2017-10-05 12:37] VITALS: BP 107/75
[2017-10-05] MEDS: OXYcodone/APAP 10/325MG TABLET PO PRN ×3 (12:45→21:02)
[2017-10-05] MEDS ORDERED: MORPHINE SULFATE 4 MG/ML, 1ML IVPush PRN (15:00)
[2017-10-05] MEDS ORDERED: DEXTROSE 70% IV SCH (17:00)
[2017-10-05] MEDS ORDERED: AMINO ACID 10% IV SCH (17:00)
[2017-10-05] MEDS ORDERED: FAT EMULSIONS IV SCH (17:00)
[2017-10-05] MEDS ORDERED: [UNRECOGNIZED DRUG - OTHER] IV SCH (17:00)
[2017-10-05] MEDS: MICAFUNGIN 100 MG in SODIUM CHLORIDE 0.9% 100 ML IV SCH (17:41)
[2017-10-05 20:14] VITALS: BP 119/79
[2017-10-05] MEDS: ENOXAPARIN 40 MG/0.4 ML SQ SCH (21:01)
[2017-10-06 02:35] VITALS: BP 112/74
[2017-10-06] MEDS: PIPERACILLIN/TAZO/PMX 4.5GM 100 ML IV SCH ×3 (05:35→21:29)
[2017-10-06] MEDS: OXYcodone/APAP 10/325MG TABLET PO PRN ×5 (05:35→21:28)
[2017-10-06] MEDS: INSULIN REGULAR MEDIUM DOSE QDAY SQ-INSULIN SCH (06:24)
[2017-10-06 07:28] VITALS: BP 104/67
[2017-10-06 07:58] LABS: BASOPHILS # (AUTO) 0.05 x10^3/uL (0-0.1); BASOPHILS % (AUTO) 1 % (0-1); EOSINOPHILS # (AUTO) 0.33 x10^3/uL (0-0.4); EOSINOPHILS % (AUTO) 4 % (1-7); HCT (SEDRATE) 34.3 % (39.2-51.8); LYMPHOCYTES % (AUTO) 9 % (22-44); MD NO; MEAN CORPUSCULAR HEMOGLOBIN 29.8 pg (27.5-34.5); MEAN CORPUSCULAR HGB CONC 33.7 g/dL (33.2-36.2); MEAN CORPUSCULAR VOLUME 88.6 fL (81-97); MONOCYTES % (AUTO) 7 % (2-9); NEUTROPHILS % (AUTO) 81 % (42-75); PLATELET COUNT 679 x10^3/uL (130-400); RED BLOOD COUNT 3.87 x10^6/uL (4.38-5.82); RED CELL DISTRIBUTION WIDTH 13.9 % (9.4-14.8)
[2017-10-06 08:02] LABS: ALBUMIN 2.2 g/dL (3.4-5.0); ANION GAP 7 mmol/L (5-15); CALCIUM 8.2 mg/dL (8.5-10.1); CHLORIDE 107 mmol/L (98-107)
[2017-10-06 08:10] LABS: ALANINE AMINOTRANSFERASE 31 U/L (12-78); ALKALINE PHOSPHATASE 126 U/L (45-117); BILIRUBIN,TOTAL 0.4 mg/dL (0.2-1.0); CREATININE 0.58 mg/dL (0.7-1.3); TOTAL PROTEIN 7.1 g/dL (6.4-8.2); TRIGLYCERIDES 146 mg/dL (50-200)
[2017-10-06 08:42] LABS: SEDIMENTATION RATE 102 mm/hr (0-10)
[2017-10-06] MEDS: TAMSULOSIN 0.4 MG CAP.ER.24H PO SCH (09:29)
[2017-10-06 13:24] VITALS: BP 117/71
[2017-10-06] MEDS ORDERED: CATHFLO-ALTEPLASE 2 MG/2 ML CATHFLUSH ONE (14:30)
[2017-10-06] MEDS ORDERED: FAT EMULSIONS IV SCH (17:00)
[2017-10-06] MEDS ORDERED: [UNRECOGNIZED DRUG - OTHER] IV SCH (17:00)
[2017-10-06] MEDS ORDERED: DEXTROSE 70% IV SCH (17:00)
[2017-10-06] MEDS ORDERED: AMINO ACID 10% IV SCH (17:00)
[2017-10-06] MEDS: SODIUM CHLORIDE 0.45% 1,000 ML IV SCH (17:02)
[2017-10-06 19:56] VITALS: BP 132/76
[2017-10-06] MEDS: ENOXAPARIN 40 MG/0.4 ML SQ SCH (20:35)
[2017-10-06] MEDS: MICAFUNGIN 100 MG in SODIUM CHLORIDE 0.9% 100 ML IV SCH (20:35)
[2017-10-07 02:58] VITALS: BP 118/75
[2017-10-07] MEDS: OXYcodone/APAP 10/325MG TABLET PO PRN ×2 (05:22→09:24)
[2017-10-07] MEDS: PIPERACILLIN/TAZO/PMX 4.5GM 100 ML IV SCH ×2 (05:22→13:52)
[2017-10-07 05:58] LABS: BASOPHILS # (AUTO) 0.04 x10^3/uL (0-0.1); BASOPHILS % (AUTO) 1 % (0-1); EOSINOPHILS # (AUTO) 0.45 x10^3/uL (0-0.4); EOSINOPHILS % (AUTO) 6 % (1-7); LYMPHOCYTES # (AUTO) 1.01 x10^3/uL (1-3.4); LYMPHOCYTES % (AUTO) 13 % (22-44); MD NO; MEAN CORPUSCULAR HEMOGLOBIN 29.7 pg (27.5-34.5); MEAN CORPUSCULAR HGB CONC 33.7 g/dL (33.2-36.2); MEAN CORPUSCULAR VOLUME 88.3 fL (81-97); MEAN PLATELET VOLUME 7.1 fL (7.4-10.4); MONOCYTES # (AUTO) 0.59 x10^3/uL (0.2-0.8); MONOCYTES % (AUTO) 8 % (2-9); NEUTROPHILS # (AUTO) 5.75 x10^3/uL (1.8-6.8); NEUTROPHILS % (AUTO) 73 % (42-75); PLATELET COUNT 613 x10^3/uL (130-400); RED BLOOD COUNT 3.59 x10^6/uL (4.38-5.82); RED CELL DISTRIBUTION WIDTH 13.9 % (9.4-14.8)
[2017-10-07 06:03] LABS: ANION GAP 8 mmol/L (5-15); CHLORIDE 106 mmol/L (98-107); CREATININE 0.47 mg/dL (0.7-1.3)
[2017-10-07] MEDS: INSULIN REGULAR MEDIUM DOSE QDAY SQ-INSULIN SCH (06:42)
[2017-10-07 07:00] VITALS: BP 102/70
[2017-10-07] MEDS ORDERED: OXYC-307 PO (08:33)
[2017-10-07] MEDS ORDERED: ONDA4TAB7 IVPush (08:33)
[2017-10-07] MEDS ORDERED: ENOX80SY5 SQ (08:34)
[2017-10-07] MEDS ORDERED: MICA100V3 IV (08:37)
[2017-10-07] MEDS ORDERED: PIPE4.5V6 IV (08:38)
[2017-10-07] MEDS: TAMSULOSIN 0.4 MG CAP.ER.24H PO SCH (09:23)
[2017-10-07 12:50] VITALS: BP 138/81
== END 2017-10-07 14:26 | DRG 853 ==
LOC: OR 23:21 → EDIP 23:58 → 4NOR 09-27 01:00
PROVIDERS: ADMIT Surgery; ATTEND Surgery
PROC: 0DQM0ZZ Repair Descending Colon, Open Approach (ICD-10-PCS; 2017-09-27)
PROC: 02HV33Z Insertion of Infusion Device into Superior Vena Cava, Percutaneous Approach (ICD-10-PCS; 2017-09-27)
PROC: B548ZZA Ultrasonography of Superior Vena Cava, Guidance (ICD-10-PCS; 2017-09-27)
PROC: 0DBM0ZZ Excision of Descending Colon, Open Approach (ICD-10-PCS; principal; 2017-09-27 07:45)
DX: A41.9 Sepsis, unspecified organism (principal); K55.049 Acute infarction of large intestine, extent unspecified; K65.1 Peritoneal abscess; K56.699 Other intestinal obstruction unspecified as to partial versus complete obstruction; E46 Unspecified protein-calorie malnutrition; K59.39 Other megacolon; K40.90 Unilateral inguinal hernia, without obstruction or gangrene, not specified as recurrent; D63.8 Anemia in other chronic diseases classified elsewhere; B96.6 Bacteroides fragilis [B. fragilis] as the cause of diseases classified elsewhere; K66.0 Peritoneal adhesions (postprocedural) (postinfection); Z86.73 Personal history of transient ischemic attack (TIA), and cerebral infarction without residual deficits; Z87.891 Personal history of nicotine dependence; Z90.49 Acquired absence of other specified parts of digestive tract; Z93.3 Colostomy status
CPT/HCPCS: 36415; 36569; 49405; 49406; 71045; 74177; 76937; 77001; 80048; 80053; 81003; 82962; 83605; 83690; 83735; 84100; 84134; 84478; 85025; 85651; 86140; 87015; 87040; 87070; 87075; 87076; 87077; 87102; 87116; 87186; 87205; 87206; 88307; 96365; C1729; J0610; J1100; J1170; J1650; J1815; J1885; J2185; J2248; J2250; J2270; J2405; J2543; J2704; J2710; J2997; J3010; J3475; J3480; J3490; Q9967; C1751; C1769; J0330; J3420; J7030; J7120; S0028

== ENCOUNTER → 2018-03-16 | Outpatient (CLI) | payer OTHER ==
[~2018-03-16] MED LIST changes: +ENOX80SY5 SQ; +MICA100V3 IV; +OMNIPAQUE 350 MG/ML, 100ML BOTTLE ONE; +ONDA4TAB7 IVPush; +OXYC-307 PO; +PIPE4.5V6 IV
== END | disposition home or self-care (01) ==
LOC: CFH 08:24
PROVIDERS: ATTEND Colon & Rectal Surgery
DX: C10.9 Malignant neoplasm of oropharynx, unspecified (principal); K80.20 Calculus of gallbladder without cholecystitis without obstruction
CPT/HCPCS: 74177; Q9967

== ENCOUNTER 2018-05-07 10:29 | Inpatient (IN) | payer OTHER ==
[~2018-05-07] VITALS: Ht 162.6 cm; Wt 67.2 kg
[~2018-05-07 10:29] MED LIST changes: +BUPIVACAINE/PF-EPI 0.5% 1:200K ONE; +INDOCYANINE GREEN 25 MG VIAL ONE; +NONE PER PT; -OMNIPAQUE 350 MG/ML, 100ML BOTTLE ONE
[2018-05-07] MEDS ORDERED: LACTATED RINGERS 1,000 ML IV SCH (10:56)
[2018-05-07] MEDS ORDERED: MIDAZOLAM 1 MG/ML, 2ML IV PRN (15:30)
[2018-05-07] MEDS ORDERED: HYDROmorphone 1 MG/ML, 1ML IV PRN ×2 (15:30→19:00)
[2018-05-07] MEDS ORDERED: MEPERIDINE/PF 25MG/0.5ML IVPush PRN ×2 (15:30→19:00)
[2018-05-07] MEDS ORDERED: ONDANSETRON 2MG/ML, 2ML IVPush PRN (15:30)
[2018-05-07] MEDS ORDERED: OXYcodone 5 MG/5 ML ORAL.SOL UDC PO PRN ×2 (15:30→19:00)
[2018-05-07] MEDS ORDERED: FENTANYL PF 100 MCG/2ML IV PRN ×2 (15:30→19:00)
[2018-05-07] MEDS ORDERED: LABETALOL 5MG/ML, 20ML IV PRN ×2 (15:30→19:00)
[2018-05-07] MEDS ORDERED: ONDANSETRON 2MG/ML, 2ML ONE (15:35)
[2018-05-07] MEDS ORDERED: PROPOFOL 10 MG/ML, 20ML ONE (15:35)
[2018-05-07] MEDS ORDERED: LIDOCAINE-MPF 2% ,5ML ONE (15:35)
[2018-05-07] MEDS ORDERED: ROCURONIUM 10MG/ML,5ML ONE (15:35)
[2018-05-07] MEDS ORDERED: METOCLOPRAMIDE 5 MG/ML, 2ML ONE (15:35)
[2018-05-07] MEDS ORDERED: DEXAMETHASONE 4 MG/ML, 1ML ONE (15:35)
[2018-05-07] MEDS ORDERED: KETOROLAC 30 MG/1 ML ONE (15:38)
[2018-05-07] MEDS ORDERED: FENTANYL PF 100 MCG/2ML ONE (15:41)
[2018-05-07] MEDS ORDERED: MIDAZOLAM 1 MG/ML, 2ML ONE (15:41)
[2018-05-07] MEDS ORDERED: NEOSTIGMINE 1 MG/ML, 10ML ONE (15:42)
[2018-05-07] MEDS ORDERED: GLYCOPYRROLATE 0.2MG/1ML, 5ML ONE (15:42)
[2018-05-07] MEDS ORDERED: CEFOTETAN PMX 2GM/50ML 50 ML ONE (15:53)
[2018-05-07] MEDS ORDERED: CEFOTETAN PMX 2GM/50ML 0 ML ONE (15:53)
[2018-05-07] MEDS ORDERED: BUPIVACAINE/PF-EPI 0.5% 1:200K INFIL ONE (16:15)
[2018-05-07] MEDS ORDERED: FENTANYL PF 250 MCG/5ML ONE (17:36)
[2018-05-07] MEDS ORDERED: MORPHINE SULFATE 4 MG/ML, 1ML IVPush PRN ×2 (19:00→22:00)
[2018-05-07] MEDS ORDERED: DIPHENHYDRAMINE 50 MG/ML, 1ML IVPush PRN ×2 (19:00→22:00)
[2018-05-07] MEDS ORDERED: hydrALAzine 20 MG/ML, 1ML IV PRN (19:00)
[2018-05-07] MEDS ORDERED: ONDANSETRON ODT 8 MG PO PRN (19:00)
[2018-05-07] MEDS ORDERED: PROCHLORPERAZINE 5 MG/ML, 2ML IV PRN ×2 (19:00)
[2018-05-07] MEDS ORDERED: ONDANSETRON 2MG/ML, 2ML IV PRN ×2 (19:00→22:00)
[2018-05-07] MEDS ORDERED: OXYcodone 5 MG/5 ML ORAL.SOL UDC ONE (19:57)
[2018-05-07] MEDS ORDERED: HYDROmorphone 2 MG/ML, 1ML ONE (20:23)
[2018-05-07] MEDS ORDERED: HALOPERIDOL 5 MG/ML IVPush PRN (22:00)
[2018-05-07] MEDS ORDERED: DEXAMETHASONE 4 MG/ML, 1ML IVPush PRN (22:00)
[2018-05-07] MEDS ORDERED: LORazepam 1MG TABLET PO PRN (22:00)
[2018-05-07] MEDS ORDERED: CALCIUM CARBONATE 500 MG TAB.CHEW PO PRN (22:00)
[2018-05-07] MEDS ORDERED: LORazepam 2 MG/ML, 1ML IVPush PRN (22:00)
[2018-05-07] MEDS ORDERED: SCOPOLAMINE PATCH, 1.5MG PATCH.TD72 TD PRN (22:00)
[2018-05-07] MEDS ORDERED: TRAZODONE 50MG TABLET PO PRN (22:00)
[2018-05-07] MEDS ORDERED: DIPHENHYDRAMINE 25 MG CAPSULE PO PRN (22:30)
[2018-05-07] MEDS: KETOROLAC 30 MG/1 ML IVPush SCH (22:30)
[2018-05-07] MEDS ORDERED: ONDANSETRON ODT 4 MG PO PRN (22:30)
[2018-05-07] MEDS: ACETAMINOPHEN 500 MG TABLET PO SCH (22:31)
[2018-05-08 00:25] VITALS: BP 118/61
[2018-05-08] MEDS: ACETAMINOPHEN 500 MG TABLET PO SCH ×4 (04:02→23:08)
[2018-05-08] MEDS: KETOROLAC 30 MG/1 ML IVPush SCH ×4 (04:02→23:08)
[2018-05-08 04:03] VITALS: BP 105/69
[2018-05-08 05:04] LABS: BASOPHILS % (AUTO) 0 % (0-1); EOSINOPHILS % (AUTO) 0 % (1-7); LYMPHOCYTES # (AUTO) 0.63 x10^3/uL (1-3.4); LYMPHOCYTES % (AUTO) 7 % (22-44); MD NO; MEAN CORPUSCULAR HGB CONC 32.7 g/dL (33.2-36.2); MEAN CORPUSCULAR VOLUME 76.4 fL (81-97); MEAN PLATELET VOLUME 7.7 fL (7.4-10.4); MONOCYTES # (AUTO) 0.64 x10^3/uL (0.2-0.8); MONOCYTES % (AUTO) 8 % (2-9); NEUTROPHILS # (AUTO) 7.27 x10^3/uL (1.8-6.8); NEUTROPHILS % (AUTO) 85 % (42-75); PLATELET COUNT 260 x10^3/uL (130-400); RED BLOOD COUNT 4.85 x10^6/uL (4.38-5.82); RED CELL DISTRIBUTION WIDTH 18.6 % (9.4-14.8)
[2018-05-08 05:15] LABS: ALBUMIN 3.1 g/dL (3.4-5.0); ANION GAP 7 mmol/L (5-15); CALCIUM 8.2 mg/dL (8.5-10.1); CHLORIDE 106 mmol/L (98-107)
[2018-05-08 05:16] LABS: CREATININE 0.91 mg/dL (0.7-1.3)
[2018-05-08] MEDS: OXYcodone IR 5MG TABLET PO PRN ×3 (05:56→23:08)
[2018-05-08 07:32] VITALS: BP 131/78
[2018-05-08] MEDS: ENOXAPARIN 40 MG/0.4 ML SQ SCH (07:56)
[2018-05-08] MEDS: LACTATED RINGERS 1,000 ML IV SCH (09:28)
[2018-05-08 12:39] VITALS: BP 124/82
[2018-05-08 18:41] VITALS: BP 118/72
[2018-05-09 00:33] VITALS: BP 101/64
[2018-05-09 05:10] LABS: BASOPHILS # (AUTO) 0.03 x10^3/uL (0-0.1); BASOPHILS % (AUTO) 0 % (0-1); EOSINOPHILS # (AUTO) 0.13 x10^3/uL (0-0.4); EOSINOPHILS % (AUTO) 2 % (1-7); LYMPHOCYTES # (AUTO) 1.39 x10^3/uL (1-3.4); LYMPHOCYTES % (AUTO) 20 % (22-44); MD NO; MEAN CORPUSCULAR HEMOGLOBIN 25.1 pg (27.5-34.5); MEAN CORPUSCULAR HGB CONC 32.8 g/dL (33.2-36.2); MEAN CORPUSCULAR VOLUME 76.5 fL (81-97); MEAN PLATELET VOLUME 7.7 fL (7.4-10.4); MONOCYTES # (AUTO) 0.62 x10^3/uL (0.2-0.8); MONOCYTES % (AUTO) 9 % (2-9); NEUTROPHILS % (AUTO) 69 % (42-75); PLATELET COUNT 242 x10^3/uL (130-400); RED BLOOD COUNT 4.79 x10^6/uL (4.38-5.82); RED CELL DISTRIBUTION WIDTH 19.2 % (9.4-14.8)
[2018-05-09 05:19] LABS: CHLORIDE 106 mmol/L (98-107)
[2018-05-09 05:45] LABS: ANION GAP 9 mmol/L (5-15); CALCIUM 8.1 mg/dL (8.5-10.1); CREATININE 0.75 mg/dL (0.7-1.3)
[2018-05-09] MEDS: KETOROLAC 30 MG/1 ML IVPush SCH ×2 (06:15→12:00)
[2018-05-09] MEDS: ACETAMINOPHEN 500 MG TABLET PO SCH ×2 (06:15→12:32)
[2018-05-09] MEDS: LACTATED RINGERS 1,000 ML IV SCH (06:30)
[2018-05-09] MEDS: ENOXAPARIN 40 MG/0.4 ML SQ SCH (07:52)
[2018-05-09 07:53] VITALS: BP 115/81
[2018-05-09 12:13] VITALS: BP 117/78
[2018-05-09] MEDS ORDERED: OXYC-302 PO (12:29)
== END 2018-05-09 13:25 | disposition home or self-care (01) | DRG 334 ==
LOC: ORIP 10:29 → 4NOR 21:15
PROVIDERS: ADMIT Colon & Rectal Surgery; ATTEND Colon & Rectal Surgery
PROC: 0DBP4ZZ Excision of Rectum, Percutaneous Endoscopic Approach (ICD-10-PCS; 2018-05-07)
PROC: 0DNU4ZZ Release Omentum, Percutaneous Endoscopic Approach (ICD-10-PCS; 2018-05-07)
PROC: 8E0W4CZ Robotic Assisted Procedure of Trunk Region, Percutaneous Endoscopic Approach (ICD-10-PCS; 2018-05-07)
PROC: 0DSL4ZZ Reposition Transverse Colon, Percutaneous Endoscopic Approach (ICD-10-PCS; principal; 2018-05-07 12:30)
DX: Z43.3 Encounter for attention to colostomy (principal); Z72.89 Other problems related to lifestyle; K66.0 Peritoneal adhesions (postprocedural) (postinfection)
CPT/HCPCS: 36415; J3490; 80048; 80053; 82040; 83735; 85025; 86850; 86900; 88304; 88307; 93005; G0378; J1100; J1170; J1650; J1885; J2250; J2405; J2704; J2710; J3010; J2765; J7120; S0074